=== PATIENT | male | born 1980 | race African-American/Black ===

== ENCOUNTER 2020-02-01 22:17 | Inpatient (IN) ==
[2020-02-02] MEDS ORDERED: ACETAMINOPHEN 500 MG TABLET PO STA (00:08)
[2020-02-02] MEDS ORDERED: SODIUM CHLORIDE 0.9% 1,000 ML IV STA (00:08)
[2020-02-02 01:20] LABS: Albumin 3.7 G/DL (3.4-5.0); Bilirubin,Total 1.3 MG/DL (0.2-1.0); Calcium 8.5 MG/DL (8.5-10.1); Ferritin 601.7 ng/ml (26-388); Osmolality,Calculated 260.7 MOS/KG (273-304); Total Protein 7.4 G/DL (6.4-8.3)
[2020-02-02 01:22] LABS: Basophils % 0.3 % (0.0-0.8); Hematocrit 40.3 VOL% (42.0-52.0); Hemoglobin 13.8 GM/DL (14.0-18.0); Immature Granulocytes % 0.8 %; Immature Granulocytes Absolute 0.03 #; Mean Corpuscular HGB Conc 34.2 GM/DL (32-36); Mean Platelet Volume 9.1 FL (9.6-12.0); Monocytes % 6.8 % (1.7-12.7); Neutrophils % 67.1 % (38.7-73.9); Platelet Count 194 T/CUMM (130-400); Red Blood Count 5.04 MC/CUMM (3.8-5.5); White Blood Count 3.8 T/CUMM (4-12)
[2020-02-02] MEDS ORDERED: AZITHROMYCIN INJ 500 MG in SODIUM CHLORIDE 0.9% 250 ML IV STA (03:19)
[2020-02-02] MEDS ORDERED: DEXAMETHASONE 4 MG/1 ML VIAL IV STA (03:19)
[2020-02-02 04:25] LABS: Basophils % 0.7 % (0.0-0.8); Hematocrit 37.1 VOL% (42.0-52.0); Hemoglobin 12.8 GM/DL (14.0-18.0); Immature Granulocytes % 0.4 %; Immature Granulocytes Absolute 0.01 #; Lymphocytes % 36.3 % (21.2-54.2); Mean Corpuscular HGB Conc 34.5 GM/DL (32-36); Mean Corpuscular Volume 80.1 FL (87-102); Mean Platelet Volume 9.1 FL (9.6-12.0); Monocytes % 9.3 % (1.7-12.7); Neutrophils % 53.3 % (38.7-73.9); Platelet Count 175 T/CUMM (130-400); Red Blood Count 4.63 MC/CUMM (3.8-5.5); Red Cell Distribution Width 12.3 % (9.3-17.3); White Blood Count 2.8 T/CUMM (4-12)
[2020-02-02 04:37] LABS: Albumin 3.2 G/DL (3.4-5.0); Bilirubin,Total 0.7 MG/DL (0.2-1.0); Calcium 7.9 MG/DL (8.5-10.1); Osmolality,Calculated 268.1 MOS/KG (273-304); Total Protein 6.5 G/DL (6.4-8.3)
[2020-02-02] MEDS: ENOXAPARIN 40 MG/0.4 ML SYRINGE SUBCUT SCH (05:19)
[2020-02-02] MEDS ORDERED: DEXAMETHASONE 4 MG/1 ML VIAL IV SCH (09:00)
[2020-02-02] MEDS: cefTRIAXone 1,000 MG in SYRINGE 1 EACH IV SCH (16:32)
[2020-02-03] MEDS ORDERED: AZITHROMYCIN INJ 500 MG in SODIUM CHLORIDE 0.9% 250 ML IV SCH (06:00)
[2020-02-03] MEDS: ENOXAPARIN 40 MG/0.4 ML SYRINGE SUBCUT SCH (06:05)
[2020-02-03 06:17] LABS: Basophils % 0.3 % (0.0-0.8); Eosinophils % 0.5 % (0.00-10.9); Hematocrit 37.7 VOL% (42.0-52.0); Immature Granulocytes % 0.3 %; Immature Granulocytes Absolute 0.01 #; Lymphocytes % 25.2 % (21.2-54.2); Mean Corpuscular HGB Conc 34.5 GM/DL (32-36); Monocytes % 6.9 % (1.7-12.7); Neutrophils % 66.8 % (38.7-73.9); Platelet Count 211 T/CUMM (130-400); Red Blood Count 4.71 MC/CUMM (3.8-5.5); Red Cell Distribution Width 12.1 % (9.3-17.3); White Blood Count 3.9 T/CUMM (4-12)
[2020-02-03 06:45] LABS: Calcium 8.2 MG/DL (8.5-10.1); Osmolality,Calculated 267.2 MOS/KG (273-304)
[2020-02-03] MEDS ORDERED: guaiFENesin 200 MG/10 ML UDCUP PO PRN (08:23)
[2020-02-03] MEDS: ZINC GLUCONATE 50 MG TABLET PO SCH (09:08)
[2020-02-03] MEDS ORDERED: REMDESIVIR 200 MG in SODIUM CHLORIDE 0.9% 210 ML IV ONE (12:00)
[2020-02-03] MEDS ORDERED: POTASSIUM CHLORIDE 20 MEQ TABLET PO ONE (12:00)
[2020-02-03] MEDS: cefTRIAXone 1,000 MG in SYRINGE 1 EACH IV SCH (16:03)
[2020-02-04 05:42] LABS: Basophils % 0.2 % (0.0-0.8); Eosinophils % 0.5 % (0.00-10.9); Hematocrit 37.8 VOL% (42.0-52.0); Hemoglobin 13.1 GM/DL (14.0-18.0); Immature Granulocytes % 0.2 %; Immature Granulocytes Absolute 0.01 #; Lymphocytes # 1.2 10*3/uL (1.4-4.0); Lymphocytes % 26.9 % (21.2-54.2); Mean Corpuscular HGB Conc 34.7 GM/DL (32-36); Mean Corpuscular Volume 79.1 FL (87-102); Mean Platelet Volume 8.7 FL (9.6-12.0); Monocytes % 10.7 % (1.7-12.7); Neutrophils % 61.5 % (38.7-73.9); Platelet Count 226 T/CUMM (130-400); Red Blood Count 4.78 MC/CUMM (3.8-5.5); Red Cell Distribution Width 12.2 % (9.3-17.3); White Blood Count 4.3 T/CUMM (4-12)
[2020-02-04] MEDS: ENOXAPARIN 40 MG/0.4 ML SYRINGE SUBCUT SCH (05:50)
[2020-02-04 06:09] LABS: Ferritin 476.6 ng/ml (26-388)
[2020-02-04 06:17] LABS: Albumin 3.2 G/DL (3.4-5.0); Bilirubin,Total 0.9 MG/DL (0.2-1.0); Calcium 8.4 MG/DL (8.5-10.1); Osmolality,Calculated 267.2 MOS/KG (273-304); Total Protein 6.7 G/DL (6.4-8.3)
[2020-02-04] MEDS: AZITHROMYCIN 250 MG TABLET PO SCH (08:35)
[2020-02-04] MEDS: ZINC GLUCONATE 50 MG TABLET PO SCH (08:35)
[2020-02-04] MEDS: ACETAMINOPHEN 325 MG TABLET PO PRN ×2 (09:26→20:23)
[2020-02-04] MEDS: REMDESIVIR 100 MG in SODIUM CHLORIDE 0.9% 230 ML IV SCH (12:57)
[2020-02-04] MEDS: cefTRIAXone 1,000 MG in SYRINGE 1 EACH IV SCH (15:04)
[2020-02-05] MEDS: ACETAMINOPHEN 325 MG TABLET PO PRN (04:40)
[2020-02-05 06:16] LABS: Basophils % 0.2 % (0.0-0.8); Eosinophils # 0.1 10*3/uL (0.0-0.87); Eosinophils % 1.4 % (0.00-10.9); Hematocrit 36.7 VOL% (42.0-52.0); Hemoglobin 12.8 GM/DL (14.0-18.0); Immature Granulocytes % 0.4 %; Immature Granulocytes Absolute 0.02 #; Lymphocytes # 0.9 10*3/uL (1.4-4.0); Lymphocytes % 19.1 % (21.2-54.2); Mean Corpuscular HGB Conc 34.9 GM/DL (32-36); Mean Corpuscular Volume 78.6 FL (87-102); Mean Platelet Volume 8.7 FL (9.6-12.0); Monocytes % 10.4 % (1.7-12.7); Neutrophils % 68.5 % (38.7-73.9); Platelet Count 259 T/CUMM (130-400); Red Blood Count 4.67 MC/CUMM (3.8-5.5); Red Cell Distribution Width 12.2 % (9.3-17.3); White Blood Count 4.9 T/CUMM (4-12)
[2020-02-05] MEDS: ENOXAPARIN 40 MG/0.4 ML SYRINGE SUBCUT SCH (06:18)
[2020-02-05 06:52] LABS: Albumin 3.2 G/DL (3.4-5.0); Bilirubin,Total 1.2 MG/DL (0.2-1.0); Calcium 8.6 MG/DL (8.5-10.1); Osmolality,Calculated 268.2 MOS/KG (273-304); Total Protein 6.9 G/DL (6.4-8.3)
[2020-02-05] MEDS: AZITHROMYCIN 250 MG TABLET PO SCH (08:00)
[2020-02-05] MEDS: ZINC GLUCONATE 50 MG TABLET PO SCH (08:00)
[2020-02-05] MEDS: ACETAMINOPHEN 500 MG TABLET PO SCH ×3 (10:16→21:56)
[2020-02-05] MEDS: REMDESIVIR 100 MG in SODIUM CHLORIDE 0.9% 230 ML IV SCH (12:16)
[2020-02-05] MEDS: cefTRIAXone 1,000 MG in SYRINGE 1 EACH IV SCH (15:31)
[2020-02-06] MEDS: ACETAMINOPHEN 500 MG TABLET PO SCH ×4 (03:22→20:48)
[2020-02-06 05:31] LABS: Basophils % 0.3 % (0.0-0.8); Eosinophils # 0.2 10*3/uL (0.0-0.87); Eosinophils % 4.6 % (0.00-10.9); Hematocrit 37.7 VOL% (42.0-52.0); Immature Granulocytes % 0.8 %; Immature Granulocytes Absolute 0.03 #; Lymphocytes # 0.8 10*3/uL (1.4-4.0); Lymphocytes % 20.6 % (21.2-54.2); Mean Corpuscular HGB Conc 34.5 GM/DL (32-36); Mean Corpuscular Volume 78.5 FL (87-102); Mean Platelet Volume 9.8 FL (9.6-12.0); Monocytes % 9.2 % (1.7-12.7); Neutrophils % 64.5 % (38.7-73.9); Platelet Count 238 T/CUMM (130-400); Red Cell Distribution Width 11.9 % (9.3-17.3); White Blood Count 3.9 T/CUMM (4-12)
[2020-02-06] MEDS: ENOXAPARIN 40 MG/0.4 ML SYRINGE SUBCUT SCH (06:05)
[2020-02-06 06:17] LABS: Albumin 3.3 G/DL (3.4-5.0); Bilirubin,Total 0.7 MG/DL (0.2-1.0); Calcium 8.4 MG/DL (8.5-10.1); Total Protein 6.4 G/DL (6.4-8.3)
[2020-02-06] MEDS: ZINC GLUCONATE 50 MG TABLET PO SCH (08:40)
[2020-02-06] MEDS: AZITHROMYCIN 250 MG TABLET PO SCH (08:40)
[2020-02-06] MEDS: REMDESIVIR 100 MG in SODIUM CHLORIDE 0.9% 230 ML IV SCH (12:55)
[2020-02-07] MEDS: ACETAMINOPHEN 500 MG TABLET PO SCH ×2 (03:30→09:49)
[2020-02-07] MEDS: ENOXAPARIN 40 MG/0.4 ML SYRINGE SUBCUT SCH (06:21)
[2020-02-07 06:29] LABS: Basophils % 0.7 % (0.0-0.8); Eosinophils # 0.2 10*3/uL (0.0-0.87); Hematocrit 38.8 VOL% (42.0-52.0); Hemoglobin 13.3 GM/DL (14.0-18.0); Immature Granulocytes % 1.5 %; Immature Granulocytes Absolute 0.06 #; Lymphocytes # 0.9 10*3/uL (1.4-4.0); Lymphocytes % 23.3 % (21.2-54.2); Mean Corpuscular HGB Conc 34.3 GM/DL (32-36); Mean Corpuscular Volume 78.9 FL (87-102); Mean Platelet Volume 8.7 FL (9.6-12.0); Monocytes % 10.4 % (1.7-12.7); Neutrophils % 59.1 % (38.7-73.9); Platelet Count 363 T/CUMM (130-400); Red Blood Count 4.92 MC/CUMM (3.8-5.5); Red Cell Distribution Width 12.1 % (9.3-17.3)
[2020-02-07 06:50] LABS: Ferritin 559.9 ng/ml (26-388)
[2020-02-07 06:54] LABS: Albumin 3.2 G/DL (3.4-5.0); Bilirubin,Total 0.5 MG/DL (0.2-1.0); Calcium 8.4 MG/DL (8.5-10.1); Osmolality,Calculated 271.8 MOS/KG (273-304); Total Protein 6.3 G/DL (6.4-8.3)
[2020-02-07 07:20] LABS: Anisocytosis Slight; Platelet Estimate Normal
[2020-02-07] MEDS ORDERED: MULTIVITAMIN (BEROCCA) TABLET PO SCH (09:00)
[2020-02-07] MEDS ORDERED: ASCORBIC ACID 500 MG TABLET PO SCH (09:00)
[2020-02-07] MEDS: ZINC GLUCONATE 50 MG TABLET PO SCH (09:49)
[2020-02-07] MEDS: REMDESIVIR 100 MG in SODIUM CHLORIDE 0.9% 230 ML IV SCH (10:46)
[2020-02-07 12:05] VITALS: BP 122/62
== END 2020-02-07 13:15 | disposition home or self-care (01) | DRG 177 ==
LOC: N.ED 22:17 → N.EDINP 02-02 03:48 → N.2E 02-02 04:50
PROVIDERS: ADMIT Hospitalist; ATTEND Hospitalist